=== PATIENT | female | born 1990 ===

== ENCOUNTER 2017-01-15 13:42 | Emergency (ER) | payer OTHER ==
[2017-01-15 13:51] VITALS: BP 117/69; PULSE 78; RESP 19; TEMP 97; O2SAT 100
[2017-01-15] MEDS ORDERED: Sodium Chloride 0.9% 1,000 ML IV STA (15:13)
--- NOTE | 2017-01-15 15:20 | CT ---
PROCEDURE: CT HEAD WITHOUT CONTRAST. HISTORY: headaches COMPARISON: None available. TECHNIQUE: Axial computed tomography images were obtained through the head/brain without intravenous contrast. Radiation dose: Total exam DLP = 801 mGy-cm. This CT exam was performed using one or more of the following dose reduction techniques: Automated exposure control, adjustment of the mA and/or kV according to patient size, and/or use of iterative reconstruction technique. FINDINGS: HEMORRHAGE: No intracranial hemorrhage. BRAIN: No mass effect or edema. No atrophy or chronic microvascular ischemic changes. VENTRICLES: Unremarkable. No hydrocephalus. CALVARIUM: Unremarkable. PARANASAL SINUSES: Unremarkable as visualized. No significant inflammatory changes. MASTOID AIR CELLS: Unremarkable as visualized. No inflammatory changes. OTHER FINDINGS: None. IMPRESSION: Normal CT of the Head.
[2017-01-15 16:28] LABS: HEMATOCRIT 39.6 % (34.0-47.0); MEAN CELL VOLUME 88.1 fl (81.0-99.0); MEAN CORPUSCULAR HEMOGLOBIN 30.2 pg (27.0-31.0); MEAN CORPUSCULAR HGB CONC 34.3 g/dL (33.0-37.0); RED CELL DISTRIBUTION WIDTH 13.2 % (11.5-14.5); WHITE BLOOD COUNT 7.8 K/uL (4.8-10.8)
[2017-01-15 16:30] LABS: ALB/GLOB RATIO 1.3 (1.0-2.1); ALKALINE PHOSPHATASE 97 U/L (38-126); ALT/SGPT 15 U/L (9-52); AST/SGOT 28 U/L (14-36); BILIRUBIN,TOTAL 0.4 mg/dl (0.2-1.3); BLOOD UREA NITROGEN 10 mg/dl (7-17); CALCIUM 9.4 mg/dL (8.4-10.2); CARBON DIOXIDE 25 mmol/L (22-30); CHLORIDE 108 mmol/L (98-107); GFR AFRICAN-AMERICAN > 60; GLUCOSE,RANDOM 87 mg/dL (65-105); SODIUM 146 mmol/l (132-148); TOTAL PROTEIN 7.3 G/DL (6.3-8.2)
--- NOTE | 2017-01-15 19:31 | ED PDOC ---
HPI: Headache Time Seen by Provider: 01/15/17 14:01 Chief Complaint (Nursing): Headache Chief Complaint (Provider): Right sided headache History Per: Patient History/Exam Limitations: no limitations Onset/Duration Of Symptoms: Days Current Symptoms Are (Timing): Still Present Quality: Sharp, Pressure Preceeding Symptoms: denies: Visual Disturbances, Known Migraine Symptoms Additional Complaint(s): Pt states she takes excedrin at home for migraines but they normally feel different and are bilateral. Pt states she took excedrin for pain but it did not help. No fever/chills. No change in vision. No nausea. Past Medical History Reviewed: Historical Data, Nursing Documentation, Vital Signs Vital Signs: Last Vital Signs Temp 97.0 F L 01/15/17 13:48 Pulse 78 01/15/17 13:48 Resp 19 01/15/17 13:48 BP 117/69 01/15/17 13:48 Pulse Ox 100 01/15/17 13:48 - Medical History PMH: Asthma, Migraine - Surgical History Surgical History: No Surg Hx - Family History Family History: States: Unknown Family Hx - Living Arrangements Living Arrangements: With Family - Social History Current smoker - smoking cessation education provided: No Alcohol: None Drugs: Denies - Home Medications Home Medications: Ambulatory Orders Medication Instructions Recorded Nitrofurantoin Macrocrystals 100 mg PO BID #10 cap 10/07/15 [Macrobid] - Allergies Allergies/Adverse Reactions: Allergies Allergy/AdvReac Type Severity Reaction Status Date / Time No Known Allergies Allergy Verified 10/06/15 23:00 Review of Systems ROS Statement: Except As Marked, All Systems Reviewed And Found Negative Neurological: Positive for: Headache Physical Exam - Reviewed Nursing Documentation Reviewed: Yes Vital Signs Reviewed: Yes - Physical Exam Appears: Positive for: Well, Non-toxic, No Acute Distress Head Exam: Positive for: ATRAUMATIC, NORMAL INSPECTION, NORMOCEPHALIC Skin: Positive for: Normal Color, Warm, DRY Eye Exam: Positive for: Normal appearance, EOMI, PERRL ENT: Positive for: Normal ENT Inspection Neck: Positive for: Normal, Painless ROM Cardiovascular/Chest: Positive for: Regular Rate, Rhythm Respiratory: Positive for: CNT, Normal Breath Sounds Gastrointestinal/Abdominal: Positive for: Normal Exam, Bowel Sounds, Soft. Negative for: Tenderness Back: Positive for: Normal Inspection Extremity: Positive for: Normal ROM Neurologic/Psych: Positive for: Alert, Oriented - Laboratory Results Result Diagrams: 01/15/17 15:59 01/15/17 15:59 - ECG O2 Sat by Pulse Oximetry: 100 Medical Decision Making Medical Decision Making: Pt reports no improvement with toradol, IV fluids and O2. Pt is breast feeding. Discussed pump and dumping breast milk with imitrex Pt reports feeling better after imitrex. Disposition - Clinical Impression Clinical Impression: Migraine - Patient ED Disposition Is Patient to be Admitted: No Counseled Patient/Family Regarding: Diagnosis, Need For Followup - Disposition Referrals: [facility] [Outside] Disposition: Routine/Home Disposition Time: 19:29 Condition: GOOD Instructions: Migraine Headache (ED) Forms: [facility] ED School/Work Excuse
== END 2017-01-15 20:08 | disposition home or self-care (01) ==
LOC: H.ER 13:42
DX: G43.909 Migraine, unspecified, not intractable, without status migrainosus (principal); J45.909 Unspecified asthma, uncomplicated

== ENCOUNTER 2018-03-04 13:13 | Emergency (ER) | payer SELFPAY ==
[2018-03-04 13:34] VITALS: BMI 28.0
[2018-03-04 13:36] VITALS: BP 111/70; PULSE 72; RESP 18; O2SAT 99
--- NOTE | 2018-03-04 14:12 | ED PDOC ---
HPI: Back Time Seen by Provider: 03/04/18 13:53 Chief Complaint (Nursing): Back Pain Chief Complaint (Provider): Mid back pain x 2 weeks History Per: Patient History/Exam Limitations: no limitations Onset/Duration Of Symptoms: Days Additional Complaint(s): Pt denies trauma. Pt states she has been taking motrin but only helps for a few minutes. No numbness/tingling. No recent weight loss. No N/V/D. No urinary symptoms. Past Medical History Reviewed: Historical Data, Nursing Documentation, Vital Signs Vital Signs: Last Vital Signs Temp Pulse 72 03/04/18 13:34 Resp 18 03/04/18 13:34 BP 111/70 03/04/18 13:34 Pulse Ox 99 03/04/18 13:34 - Medical History PMH: Asthma, Migraine - Surgical History Surgical History: No Surg Hx - Family History Family History: States: Unknown Family Hx - Living Arrangements Living Arrangements: With Family - Social History Current smoker - smoking cessation education provided: No - Home Medications Home Medications: Ambulatory Orders Medication Instructions Recorded Nitrofurantoin Macrocrystals 100 mg PO BID #10 cap 10/07/15 [Macrobid] Cyclobenzaprine [Cyclobenzaprine 10 mg PO Q8H #20 tab 03/04/18 HCl] - Allergies Allergies/Adverse Reactions: Allergies Allergy/AdvReac Type Severity Reaction Status Date / Time No Known Allergies Allergy Verified 10/06/15 23:00 Review of Systems ROS Statement: Except As Marked, All Systems Reviewed And Found Negative Constitutional: Negative for: Fever, Chills Genitourinary Female: Negative for: Dysuria, Vaginal Discharge, Vaginal Bleeding , Pelvic Pain Musculoskeletal: Positive for: Back Pain Neurological: Negative for: Weakness Physical Exam - Reviewed Nursing Documentation Reviewed: Yes Vital Signs Reviewed: Yes - Physical Exam Appears: Positive for: Well, Non-toxic, No Acute Distress Head Exam: Positive for: ATRAUMATIC, NORMAL INSPECTION, NORMOCEPHALIC Skin: Positive for: Normal Color, Warm, DRY Eye Exam: Positive for: Normal appearance ENT: Positive for: Normal ENT Inspection Neck: Positive for: Normal, Painless ROM Cardiovascular/Chest: Positive for: Regular Rate, Rhythm Respiratory: Positive for: Normal Breath Sounds. Negative for: Accessory Muscle Use, Respiratory Distress Gastrointestinal/Abdominal: Positive for: Normal Exam. Negative for: Tenderness Back: Positive for: Normal Inspection, Muscle Spasm ((+) perispinal tenderness with muscle spasm ) Extremity: Positive for: Normal ROM Neurologic/Psych: Positive for: Alert, Oriented - ECG O2 Sat by Pulse Oximetry: 99 Medical Decision Making Medical Decision Making: Komal in ER . Peg (-) MP 02/10 Disposition - Clinical Impression Clinical Impression: Muscle pain - Patient ED Disposition Is Patient to be Admitted: No Counseled Patient/Family Regarding: Diagnosis, Need For Followup, Rx Given - Disposition Referrals: [facility] [Outside] Disposition: Routine/Home Disposition Time: 14:11 Condition: STABLE Prescriptions: Cyclobenzaprine [Cyclobenzaprine HCl] 10 mg PO Q8H #20 tab Instructions: Muscle and Bone Pain (DC) Forms: [facility] (Swiss)
[2018-03-04 14:31] VITALS: TEMP 98
== END 2018-03-04 14:34 | disposition home or self-care (01) ==
LOC: H.ER 13:13
DX: M54.9 Dorsalgia, unspecified (principal)

== ENCOUNTER 2018-05-21 16:48 | Emergency (ER) | payer OTHER ==
[2018-05-21 16:48] VITALS: BMI 28.0
[2018-05-21] MEDS ORDERED: Sodium Chloride 0.9% 1,000 ML IV STA (17:52)
--- NOTE | 2018-05-21 17:57 | ED PDOC ---
HPI: Female Pain Time Seen by Provider: 05/21/18 17:25 Chief Complaint (Nursing): Headache Chief Complaint (Provider): Pelvic pain History Per: Patient History/Exam Limitations: no limitations Onset/Duration Of Symptoms: Days Additional Complaint(s): Pt. with pelvic cramps off and on for 1 week right. No vaginal bleeding. No diarrhea. Vik burning urination. Also has right side headache, mild. Goes away with tylenol. Feels same as her migraines. Not worst in her life. No vision changes. No numbness, tingles, weakness, dizziness. 14 wks preg. Past Medical History Reviewed: Nursing Documentation, Vital Signs Vital Signs: Last Vital Signs Temp 98.5 F 05/21/18 17:18 Pulse 70 05/21/18 17:18 Resp 18 05/21/18 17:18 BP 106/66 05/21/18 17:18 Pulse Ox 98 05/21/18 17:18 - Medical History PMH: Asthma, Migraine - Surgical History Surgical History: No Surg Hx - Family History Family History: States: Unknown Family Hx - Home Medications Home Medications: Ambulatory Orders Medication Instructions Recorded Nitrofurantoin Macrocrystals 100 mg PO BID #10 cap 10/07/15 [Macrobid] Cyclobenzaprine [Cyclobenzaprine 10 mg PO Q8H #20 tab 03/04/18 HCl] - Allergies Allergies/Adverse Reactions: Allergies Allergy/AdvReac Type Severity Reaction Status Date / Time No Known Allergies Allergy Verified 10/06/15 23:00 Review of Systems ROS Statement: Except As Marked, All Systems Reviewed And Found Negative Gastrointestinal: Positive for: Nausea, Vomiting Genitourinary Female: Positive for: Pelvic Pain Neurological: Positive for: Headache Physical Exam - Reviewed Nursing Documentation Reviewed: Yes Vital Signs Reviewed: Yes - Physical Exam Appears: Positive for: Well, Non-toxic, No Acute Distress Head Exam: Positive for: ATRAUMATIC, NORMAL INSPECTION, NORMOCEPHALIC Skin: Positive for: Normal Color, Warm, DRY Eye Exam: Positive for: EOMI, Normal appearance, PERRL ENT: Positive for: Normal ENT Inspection Neck: Positive for: Normal, Painless ROM Cardiovascular/Chest: Positive for: Regular Rate, Rhythm Respiratory: Positive for: CNT, Normal Breath Sounds Gastrointestinal/Abdominal: Positive for: Normal Exam, Soft. Negative for: Tenderness Back: Positive for: Normal Inspection. Negative for: L CVA Tenderness, R CVA Tenderness Extremity: Positive for: Normal ROM. Negative for: Tenderness Neurologic/Psych: Positive for: Alert, review nurse II-XII, Oriented. Negative for: Motor/Sensory Deficits, Aphasia - Laboratory Results Result Diagrams: 05/21/18 18:15 Urine dip results: Positive for: Nitrate - ECG O2 Sat by Pulse Oximetry: 98 - Progress ED Course And Treament: 1856: Dr. Sanchez to fu on labs and imaging. Type pending/[facility] pending. Disposition - Clinical Impression Clinical Impression: Migraine, Threatened - Patient ED Disposition Is Patient to be Admitted: No - Disposition Disposition: Transfer of Care Disposition Time: 18:57 Condition: FAIR Patient Signed Over To: Desean Sanchez
[2018-05-21 18:42] LABS: BASO % 0.4 % (0.0-2.0); EOS # 0.1 K/uL (0.0-0.7); EOS % 1.2 % (0.0-4.0); HEMOGLOBIN 11.3 g/dL (12.0-16.0); LYMPH # 1.7 K/uL (1.0-4.3); LYMPH % 19.6 % (20.0-40.0); MEAN CELL VOLUME 88.5 fl (81.0-99.0); MEAN CORPUSCULAR HEMOGLOBIN 30.7 pg (27.0-31.0); MEAN CORPUSCULAR HGB CONC 34.7 g/dL (33.0-37.0); MEAN PLATELET VOLUME 7.3 fl (7.2-11.7); MONO # 0.5 K/uL (0.0-0.8); MONO % 5.6 % (0.0-10.0); NEUT # 6.3 K/uL (1.8-7.0); NEUT % 73.2 % (50.0-75.0); RBC 3.69 Mil/uL (3.80-5.20); RED CELL DISTRIBUTION WIDTH 13.2 % (11.5-14.5); WHITE BLOOD COUNT 8.6 K/uL (4.8-10.8)
[2018-05-21 18:53] LABS: SQUAMOUS EPITHIAL 1 /hpf (0-5); URINE BACTERIA RARE (<OCC); URINE BILIRUBIN NEGATIVE (NEGATIVE); URINE BLOOD NEGATIVE (NEGATIVE); URINE CLARITY SLIGHTY-CLOUDY (Clear); URINE COLOR YELLOW (YELLOW); URINE GLUCOSE (UA) NEG (Normal); URINE LEUKOCYTE ESTERASE NEG Leu/uL (Negative); URINE PROTEIN NEGATIVE (NEGATIVE); URINE UROBILINOGEN 0.2-1.0 mg/dL (0.2-1.0)
[2018-05-21 18:54] LABS: BLOOD UREA NITROGEN 9 mg/dl (7-17); CALCIUM 8.8 mg/dL (8.4-10.2); GFR AFRICAN-AMERICAN > 60; GFR NON-AFRICAN AMERICAN > 60
--- NOTE | 2018-05-21 20:36 | ED PDOC ---
- Laboratory Results Result Diagrams: 05/21/18 18:15 05/21/18 18:15 - ECG O2 Sat by Pulse Oximetry: 98 Medical Decision Making Medical Decision Making: Time: 19:00 --Patient care endorsed from Dr. Hansen to provider pending US, labs and reevaluation. Time: 19:59 --Labs reviewed show no clinically significant abnormality with exception to Urinalysis which suggests UTI. Time: 20:07 US - , Transvag FINDINGS: Gestation: Single viable intrauterine . Estimated gestational age by ultrasound is 19 weeks 2 days. Fetus is in transverse position. motion noted. Cardiac activity is seen with a rate of 147 beats per minute. Estimated weight is 90 g. Placenta/amniotic fluid: No placenta previa. Placenta is posterior and fundal. Uterus/cervix: Cervix is 5.0 cm in length and closed. No myometrial mass. Ovaries: Right ovary is not seen. Left ovary is not seen. Free fluid: No free fluid. IMPRESSION: Single viable intrauterine . No acute findings Time: 20:54 --Upon reevaluation patient reports that headache has resolved. Patient is stable for discharge at this time. Diagnosis is UTI and headache in Upon provider reevaluation patient is feeling better, is medically stable, and requires no further treatment in the ED at this time. Patient will be discharged home with Rx for Macrobid. Counseling was provided and all questions were answered regarding diagnosis and need for follow up with PMD. There is agreement to discharge plan. Return if symptoms persist or worsen. Scribe Attestation: Documented by Fly Viveros, acting as a scribe for Desean Sanchez MD. Provider Scribe Attestation: All medical record entries made by the Scribe were at my direction and personally dictated by me. I have reviewed the chart and agree that the record accurately reflects my personal performance of the history, physical exam, medical decision making, and the department course for this patient. I have also personally directed, reviewed, and agree with the discharge instructions and disposition. Disposition - Clinical Impression Clinical Impression: UTI (urinary tract infection), Headache in - POA Present On Arrival: None - Disposition Disposition: Routine/Home Disposition Time: 20:54 Condition: IMPROVED Additional Instructions: CHELSEA DOW, thank you for letting us take care of you today. Your provider was Desean Sanchez MD and you were treated for 14 WKS PREG HEADACHE, ABD PAIN. The emergency medical care you received today was directed at your acute symptoms. If you were prescribed any medication, please fill it and take as directed. It may take several days for your symptoms to resolve. Return to the Emergency Department if your symptoms worsen, do not improve, or if you have any other problems. Please contact your doctor or call one of the physicians/clinics you have been referred to that are listed on the Patient Visit Information form that is included in your discharge packet. Bring any paperwork you were given at discharge with you along with any medications you are taking to your follow up visit. Our treatment cannot replace ongoing medical care by a primary care provider outside of the emergency department. Thank you for allowing the [facility] team to be part of your care today. If you had an X-Ray or CT scan: A Radiologist will review the ED reading if any change in treatment is needed we will contact you. If you had a blood, urine, or wound culture: It will take several days for the results, if any change in treatment is needed we will contact you. If you had an STI test: It will take 48 hours for the results. Please call after 1 week if you have not heard back. Prescriptions: Nitrofurantoin Macrocrystals [Macrobid] 100 mg PO BID #14 cap Instructions: Urinary Tract Infection, Adult (DC) Forms: [employer] (Libyan)
[2018-05-21 21:06] VITALS: BP 127/74; PULSE 77; RESP 16; TEMP 98.3
--- NOTE | 2018-05-22 08:54 | US ---
Date of service: 05/21/2018 PROCEDURE: OB Pelvic Ultrasound HISTORY: preg and pain LMP: 02/10/2018 COMPARISON: No relevant prior imaging. FINDINGS: UTERUS: Placenta: Posterior, fundal. Presentation: Transverse. BPD: 2.7 cm compatible with estimated gestational age of 14 weeks, 5 days. HC: 9.7 cm compatible with estimated gestational age of 14 weeks, 3 days. AC: 7.5 cm compatible with estimated gestational age of 14 weeks, 0 days. FL: 1.4 cm compatible with estimated gestational age of 14 weeks, 1 day. Heart rate: 150 bpm. age (Ultrasound estimated): 14 weeks, 2 days Payal-gestational hemorrhage: None. Date of delivery (Ultrasound estimated) : 11/17/2018 CERVIX: Measures 5.0 cm. Long and closed. No cervical abnormality seen. RIGHT OVARY: Not visualized LEFT OVARY: Not visualized FREE FLUID: None. OTHER FINDINGS: None. IMPRESSION: Single live intrauterine gestation with average ultrasound age of 14 weeks, 2 days. heart rate 150 beats per minute. Cervix long and closed.
[2018-05-22 19:45] VITALS: O2SAT 98
== END 2018-05-21 21:06 | disposition home or self-care (01) ==
LOC: H.ER 16:48
DX: R51 Headache (principal)
CPT/HCPCS: 76817; 80048; 81003; 81025; 82948; 84702; 85025; 86850; 86900; 99285; J2765; J7030

== ENCOUNTER 2018-10-10 19:59 | Emergency (ER) | payer SELFPAY ==
[2018-10-10 20:57] VITALS: BMI 33.2
[2018-10-10 21:48] LABS: SQUAMOUS EPITHIAL 2 /hpf (0-5); URINE AMORPHOUS SEDIMENT RARE /ul (<OCC); URINE BACTERIA RARE (<OCC); URINE BILIRUBIN NEGATIVE (NEGATIVE); URINE BLOOD NEGATIVE (NEGATIVE); URINE CLARITY CLOUDY (Clear); URINE COLOR YELLOW (YELLOW); URINE GLUCOSE (UA) NEG (NEGATIVE); URINE LEUKOCYTE ESTERASE NEG Leu/uL (Negative); URINE PROTEIN NEGATIVE (NEGATIVE); URINE UROBILINOGEN 0.2-1.0 mg/dL (0.2-1.0)
[2018-10-11 02:48] VITALS: BP 111/52; PULSE 71
== END 2018-10-10 21:00 | disposition home or self-care (01) ==
LOC: H.EROB2 19:59
DX: O26.93 Pregnancy related conditions, unspecified, third trimester (principal); R10.2 Pelvic and perineal pain; Z3A.34 34 weeks gestation of pregnancy; O47.03 False labor before 37 completed weeks of gestation, third trimester

== ENCOUNTER 2018-11-12 06:13 | Inpatient (IN) | payer MEDICAID ==
[2018-11-12 06:37] VITALS: BMI 32.4
[2018-11-12] MEDS ORDERED: ceFAZolin 2 GM in Sodium Chloride 0.9% 100 ML IVPB ONE (06:37)
[2018-11-12] MEDS ORDERED: Lactated Ringer's 1,000 ML IV ONE (06:37)
--- NOTE | 2018-11-12 06:37 | OBHP ---
Datetime: 10/10/2018 20:45 IP Adm Impression: , intrauterine ; No Active Labor; Intact Membranes IP Admit Plan: Discharge home Admit Comment, IP Provider: 28yo IUP at 34w [facility] UC c/o occ pressure since 2pm on and off s alberto 2pm She didn't want to come in bu her made her to make sure. No SROM. No VB. +FM [place] last time yesterday POBGYNH: C/S x 3 ; no STD PMH: asthma PSH: umbilical hernia/C/S x 3 NKA PSOH: dneis smoking ETOH drugs A: IUp at 34w not in labor C/S x 3 PLAN: [facility] about IVF hydration...check UA...she wanted to go katharine because she felt fin e...will chekc UA and labot intructoins...cephalexin 500mg PO TID x 7d (script given) Abdomen - PN: Normal Lungs - PN: Normal Heart - PN: Normal HEENT - PN: Normal General - PN: Normal FHR - Baseline A Provider: 130 Membranes, Provider: Intact Contraction Comments Provider: one Comments, ACOG Physical Exam: IN NAD ROS: general she feels fine GI No N/V/D : no F/U/D CV: no CP no palipations RESP: no SOB; no cough (Annotations: Data stored by CPN on behalf of user) Pool Provider: Negative IP Hx Assessment: The History has been Reviewed and is Current EGA AdmitDate IP: 34.4 Vital Signs Provider: Reviewed IP Chief Complaint: Other NICHD Variability Prov Fetus A: Moderate 6-25bpm NICHD Accel Fetus A IP Provider: 15X15 FHR Category Provider Fetus A: Category I NICHD Decel Fetus A IP Provider: None Dilatation, Provider: 0 Effacement, Provider: 0 Genitourinary Exam: Normal
[2018-11-12] MEDS ORDERED: Oxytocin 30 UNIT 30 UNITS/500 ML BAG IV ONE (06:43)
[2018-11-12] MEDS ORDERED: Lactated Ringer's 1,000 ML IV SCH ×2 (06:45→14:13)
[2018-11-12] MEDS ORDERED: OXYTOCIN/0.9 % NS 20 UNIT/1,000 ML BAG IV SCH (06:45)
[2018-11-12] MEDS: Lactated Ringer's 1,000 ML IV ONE ×2 (06:58→09:10)
[2018-11-12 07:45] LABS: BASO % 0.2 % (0.0-2.0); EOS # 0.1 K/uL (0.0-0.7); EOS % 1.2 % (0.0-4.0); HEMOGLOBIN 10.8 g/dL (12.0-16.0); LYMPH # 1.8 K/uL (1.0-4.3); LYMPH % 18.3 % (20.0-40.0); MEAN CELL VOLUME 85.7 fl (81.0-99.0); MEAN CORPUSCULAR HEMOGLOBIN 30.3 pg (27.0-31.0); MEAN CORPUSCULAR HGB CONC 35.4 g/dL (33.0-37.0); MEAN PLATELET VOLUME 7.8 fl (7.2-11.7); MONO # 0.6 K/uL (0.0-0.8); MONO % 6.2 % (0.0-10.0); NEUT # 7.3 K/uL (1.8-7.0); NEUT % 74.1 % (50.0-75.0); RBC 3.57 Mil/uL (3.80-5.20); RED CELL DISTRIBUTION WIDTH 14.4 % (11.5-14.5); WHITE BLOOD COUNT 9.9 K/uL (4.8-10.8)
--- NOTE | 2018-11-12 08:51 | OBADHP ---
Datetime: 11/12/2018 07:19 Admit Comment, IP Provider: 28 y/o, , with IUP 39.2 wks based on GILMA of 11/17/18 presents for r epeat and BTL. Denies any complaints. Denies loss of fluid per vagina, vaginal bleeding or decreased movement. Reports good FM. Denies F/C/N/V/D, CP or SOB. care: Jaziel Bojorquez, last appointment was a week ago GBS neg, HIV Neg, RPR Neg, PPD neg, GC/C neg, Rubella Immune, HbsAg Neg OBHx: 3 x C-sections for failure to progress. No history of STI's. No history of GDM or HTN. PMHx: Asthma- uses a nebulizer and an albuterol inhaler- last exacerbation was 4 months ago, no pr evious intubations PSHx: x3 (all sections were performed because of failure to progress as per patient); ap pendectomy 20 years ago Allergies: NKDA Med: PNVs (stopped took them for only 6 months); took tylenol last night at 6pm (650mg) for hip pa in F/H: Father from Esophageal cancer; Mother suffers from migraines SOcial Hx: Denies ETOH/smoking/Drugs PE: Gen: Resting comfortably in hospital bed. Chest: RRR, S1S2 present Lungs: CTAB ABdomen: Gravid, NT, BS+ Ext: No pedal edema A/P: 28 y/o, , with IUP at 39+2 wks based on GILMA of 11/17/18 presents for scheduled an d BTL. Continue EFM and toco monitoring NPO NST reactive- category 1 tracing GBS-, HIV Neg, RPR Neg, GC/C neg, Rubella Immune, HbsAg Neg, Admit to unit, protocol LR 999 and 125 ml/hr Anesthesia consult CBC, T_S, type and cross match given multiple sections in the past. Case discussed Dr. Rosi Madrigal, PGY1 Pelvic Type - PN: Adequate Extremities - PN: Normal Abdomen - PN: Normal Back - PN: Normal Breast - PN: Not Done Lungs - PN: Normal Heart - PN: Normal Thyroid - PN: Normal Neurologic - PN: Not Done HEENT - PN: Normal General - PN: Normal FHR - Baseline A Provider: 120 Vital Signs Provider: Reviewed; Within Normal Limits IP Chief Complaint: Scheduled Section NICHD Variability Prov Fetus A: Moderate 6-25bpm NICHD Accel Fetus A IP Provider: 15X15 FHR Category Provider Fetus A: Category I NICHD Decel Fetus A IP Provider: None Genitourinary Exam: Normal DTRs - PN: Not Done EGA AdmitDate IP: 39.2 IP Adm Impression: Term, intrauterine IP Admit Plan: Initiate Section protocol Datetime: 10/10/2018 20:45 Membranes, Provider: Intact Contraction Comments Provider: one Comments, ACOG Physical Exam: IN NAD ROS: general she feels fine GI No N/V/D : no F/U/D CV: no CP no palipations RESP: no SOB; no cough (Annotations: Data stored by CPN on behalf of user) Pool Provider: Negative IP Hx Assessment: The History has been Reviewed and is Current Dilatation, Provider: 0 Effacement, Provider: 0
[2018-11-12] MEDS ORDERED: Morphine 1 mg/ml preservative-free Inj(Duramorph) ONE (09:23)
[2018-11-12] MEDS ORDERED: Phenylephrine 10 mg/ml Inj ONE (09:50)
[2018-11-12] MEDS ORDERED: Oxycodone/Acetaminophen 5/325 mg Tab PO PRN ×3 (10:59→14:13)
[2018-11-12] MEDS ORDERED: DiphenhydrAMINE 50 mg/ml Inj ONE (11:10)
--- NOTE | 2018-11-12 11:12 | OBHP ---
Datetime: 11/12/2018 07:19 IP Admit Plan: Initiate Section protocol Pelvic Type - PN: Adequate Extremities - PN: Normal Abdomen - PN: Normal Back - PN: Normal Breast - PN: Not Done Lungs - PN: Normal Heart - PN: Normal Thyroid - PN: Normal Neurologic - PN: Not Done HEENT - PN: Normal General - PN: Normal FHR - Baseline A Provider: 120 EGA AdmitDate IP: 39.2 Vital Signs Provider: Reviewed; Within Normal Limits IP Chief Complaint: Scheduled Section NICHD Variability Prov Fetus A: Moderate 6-25bpm NICHD Accel Fetus A IP Provider: 15X15 FHR Category Provider Fetus A: Category I NICHD Decel Fetus A IP Provider: None Genitourinary Exam: Normal DTRs - PN: Not Done Datetime: 11/12/2018 07:06 IP Adm Impression: Term, intrauterine ; No Active Labor; Intact Membranes Admit Comment, IP Provider: 28 y/o, , with IUP 39.2 wks based on GILMA of 11/17/18 presents for r epeat and BTL. Denies any complaints. Denies loss of fluid per vagina, vaginal bleeding or decreased movement. Reports good FM. Denies F/C/N/V/D, CP or SOB. care: Jaziel Bojorquez, last appointment was a week ago GBS neg, HIV Neg, RPR Neg, PPD neg, GC/C neg, Rubella Immune, HbsAg Neg OBHx: 3 x C-sections for failure to progress. No history of STI's. No history of GDM or HTN. PMHx: Asthma- uses a nebulizer and an albuterol inhaler- last exacerbation was 4 months ago, no pr evious intubations PSHx: x3 (all sections were performed because of failure to progress as per patient); ap pendectomy 20 years ago Allergies: NKDA Med: PNVs (stopped took them for only 6 months); took tylenol last night at 6pm (650mg) for hip pa in F/H: Father from Esophageal cancer; Mother suffers from migraines SOcial Hx: Denies ETOH/smoking/Drugs PE: Gen: Resting comfortably in hospital bed. Chest: RRR, S1S2 present Lungs: CTAB ABdomen: Gravid, NT, BS+ Ext: No pedal edema A/P: 28 y/o, , with IUP at 39+2 wks based on GILMA of 11/17/18 presents for scheduled an d BTL. Continue EFM and toco monitoring NPO NST reactive GBS-, HIV Neg, RPR Neg, GC/C neg, Rubella Immune, HbsAg Neg, Admit to unit, protocol LR 999 and 125 ml/hr Anesthesia consult CBC, T_S, type and cross match given multiple sections in the past. Case discussed Dr. Rosi Madrigal, PGY1 OB Hospitalist note: Pt seen and examined at 9am - In NAD Abd two incisions (discuissed with pt...will go with upper abd incision) A; 39w Previous C/S x 3 multiparity - desries BTL PLAN: conditoin, procedurem risks/complicatoins discussed with pt. her questoins answered. Her h usband was present. They understood above. Informed consent obtained CRISTINA
[2018-11-12] MEDS ORDERED: DiphenhydrAMINE 50 mg/ml Inj IVP PRN ×2 (11:50→14:13)
[2018-11-12] MEDS ORDERED: Simethicone 80 mg Chewtab PO SCH (16:00)
[2018-11-12] MEDS: OXYTOCIN/0.9 % NS 20 UNIT/1,000 ML BAG IV SCH (17:20)
--- NOTE | 2018-11-12 19:01 | OBDS ---
DELIVERY PERSONNEL Delivery Doctor: Kacy Morales DO Scrub Nurse: Cindy Ferreira Supervisor Phosphatic Fertilizer: Krystal Rdz RN/ eloina henderson rn Anesthesiologist: diann Resident: nick MATERNAL INFORMATION Delivery Anesthesia: Spinal Medications in Delivery: ancef 2 grams as preop / 30 u pitocin in 500 cc .9ns Estimated Blood Loss (ml): 800 Placenta Cultured: No Maternal Complications: Other Other Maternal Complications: rc/s with btl 39 weeks pervious c/s x3 rc/s [place] Provider Comments: Pre Op Dx: IUP at 39w/Previous C/S x 3/multiparity - desires BTL Post Op Dx: Same Procedure: Repeat C/S and bilateral tubal ligation (Mod [place] tech) Surgeon Dr Morales Asst : Dr Rob Cha Anesth: Dr Lyon Anesth: spinal Operative findings: -live infant female delivered from cephalic presentatoin/ 9,9 -clear AF -placenta delivered intact spontaneously -Ovaries and tubes WNL -All equipment, spongens and needles accounted for -EBL 800cc LABOR SUMMARY EDC: 11/17/2018 00:00 No. Babies in Womb: 1 Attempted: No Labor Anesthesia: None LABOR INFORMATION Oxytocin: N/A Group B Beta Strep: Negative Steroids Given: None MEMBRANES Membranes Rupture Method: Artificial Rupture of Membranes: 11/12/2018 10:10 Length of Rupture (hrs): 0.00 STAGES OF LABOR Stage 3 hrs: 0 Stage 3 min: 1 VAGINAL DELIVERY Episiotomy: None Laceration Extension: N/A Laceration Type: None CSECTION DELIVERY Primary Indication: Repeat Elective btl Secondary Indication: rc/s CSection Urgency: Elective CSection Incidence: Repeat Labor: N/A Elective: Elective CSection Incision: Lower Uterine Transverse Uterine Closure: Double-layer closure BABY A INFORMATION Infant Delivery Date/Time: 11/12/2018 10:10 Method of Delivery: Born in Route : Yes : N/A Forceps: N/A Vacuum Extraction: N/A Shoulder Dystocia : No SHOULDER DYSTOCIA BABY A Delivery Date/Time: 11/12/2018 10:10 PRESENTATION/POSITION BABY A Presentation: Cephalic Cephalic Presentation: Vertex Breech Presentation: N/A PLACENTA INFORMATION BABY A Placenta Delivery Time : 11/12/2018 10:11 Placenta Method of Delivery: Manual Removal Placenta Status: Delivered SCORES BABY A Heart Rate 1 min: >100 bpm Resp Effort 1 min: Good Cry Reflex Irritability 1 min: Cough or Sneeze or Pulls Away Muscle Tone 1 min: Active Motion Color 1 min: Body [place], Extremities Blue Resuscitation Effort 1 min: Tactile Stimulation SCORE 1 MIN: 9 Heart Rate 5 min: >100 bpm Resp Effort 5 min: Good Cry Reflex Irritability 5 min: Cough or Sneeze or Pulls Away Muscle Tone 5 min: Active Motion Color 5 min: Body [place], Extremities Blue SCORE 5 MIN: 9 Heart Rate 10 min: >100 bpm Resp Effort 10 min: Good Cry Reflex Irritability 10 min: Cough or Sneeze or Pulls Away Muscle Tone 10 min: Active Motion Color 10 min: Completely [place] SCORE 10 MIN: 10 INFANT INFORMATION BABY A Gestational Age at Delivery: 39.0 Gestational Status: Term Infant Outcome : Liveborn Condition : Stable Sex: Female IDENTIFICATION/MEDS BABY A ID Band Number: [id number] ID Band Location: Left Leg; Left Arm WEIGHT/LENGTH BABY A Birthweight (gms): 3610 Weight (lb): 7 Infant Weight (oz): 15 Infant Length Inches: 20.00 Infant Length cms: 50.8 CORD INFORMATION BABY A No. Cord Vessels: 3 Nuchal Cord : N/A Nuchal Cord Other: no True Knot: no Infant Cord pH Baby Arterial: no Infant Cord pH Baby Venous: no Cord Blood Taken: Yes Banking/Donate Info: no Suction: Mouth; Nose ASSESSMENT BABY A Complications: None Physical Findings at Delivery: Within Normal Limits Respirations: Appears Normal Care By: dr tripathi (ped) kierra solis rn Transferred To: Remains with Mother
[2018-11-12] MEDS: Oxycodone/Acetaminophen 5/325 mg Tab PO PRN (21:46)
[2018-11-12] MEDS: Simethicone 80 mg Chewtab PO SCH (21:46)
[2018-11-13] MEDS: Simethicone 80 mg Chewtab PO SCH ×5 (03:51→22:24)
[2018-11-13] MEDS: OXYTOCIN/0.9 % NS 20 UNIT/1,000 ML BAG IV SCH (05:59)
[2018-11-13] MEDS: Oxycodone/Acetaminophen 5/325 mg Tab PO PRN ×4 (06:01→22:24)
[2018-11-13 07:29] LABS: BASO % 0.2 % (0.0-2.0); EOS # 0.1 K/uL (0.0-0.7); EOS % 0.6 % (0.0-4.0); HEMOGLOBIN 9.7 g/dL (12.0-16.0); LYMPH # 1.8 K/uL (1.0-4.3); LYMPH % 14.3 % (20.0-40.0); MEAN CELL VOLUME 86.2 fl (81.0-99.0); MEAN CORPUSCULAR HGB CONC 34.8 g/dL (33.0-37.0); MEAN PLATELET VOLUME 7.8 fl (7.2-11.7); MONO # 0.8 K/uL (0.0-0.8); MONO % 6.4 % (0.0-10.0); NEUT # 9.7 K/uL (1.8-7.0); NEUT % 78.5 % (50.0-75.0); NRBC % 0.1 % (0.0-0.0); RBC 3.24 Mil/uL (3.80-5.20); RED CELL DISTRIBUTION WIDTH 14.7 % (11.5-14.5); WHITE BLOOD COUNT 12.3 K/uL (4.8-10.8)
[2018-11-13] MEDS: Multivitamin With Minerals Tab PO SCH (08:07)
[2018-11-13] MEDS ORDERED: Multivitamin With Minerals Tab PO SCH (09:00)
[2018-11-13] MEDS ORDERED: Pneumococcal 23-Valent Vaccine IM ONE (10:00)
[2018-11-13] MEDS ORDERED: Bisacodyl 5mg EC Tab PO PRN ×2 (10:59)
[2018-11-14] MEDS: Oxycodone/Acetaminophen 5/325 mg Tab PO PRN ×5 (03:07→22:12)
[2018-11-14] MEDS: Simethicone 80 mg Chewtab PO SCH ×4 (03:07→22:11)
[2018-11-14] MEDS: Multivitamin With Minerals Tab PO SCH (08:12)
--- NOTE | 2018-11-14 10:23 | OBPPN ---
Datetime: 11/14/2018 08:23 PP Pain Prov: Within normal limits PP Nausea Prov: Denies PP Flatus Prov: Yes PP BM Prov: No PP Breasts Prov: Not Done PP Heart Prov: Normal PP Lungs Prov: Normal PP Abdomen/Uterus Prov: Normal PP Lochia Prov: Not Done PP Vulva/Perineum Prov: Not Done PP CVA Tenderness Prov: Normal PP Extremities Prov: Normal PP C/S Incision Prov: Normal PP Progress Prov: Normal PP Impression Prov: Normal progression PP Plan Prov: Continue present management PP Progress Note Prov: POD 2 S: 28 yo f S/P C-sec and BTL on 11/12/18 POD 2. No overnight events. Pain tolerated with Ib uprofen. Ambulating without dizziness/ lightheadedness/palpitations. and bottle feeding . Lochia < menses. + flatus/- BM. Denies fever/chills, diarrhea, nausea/vomiting, chest pain, dyspnea , and dizziness. Tolerating regular diet. O: VS: stable GEN: NAD Cardio: S1S2, no murmurs Lungs: clear breath sounds b/l, no wheezing Abdomen: BS+, appropriate tenderness to palpation. Incision C/D/I. Uterus is firm and at the level of the umbilicus. Appropriate tenderness EXT: No edema, calves non-tender NEURO/PSYCH: AAOx3, no grossly focal deficits, preserved affect and mood. H/H: 10.8/30.6 9.7/27.9 Assessment/Plan: 28 yo f S/P C-sec and BTL on 11/12/18 POD2. Pt remains afebrile, tolerating pain with medication. -SCDs for DVT prophylaxis, encouraged ambulating -Percocet 5/325mg q4 and Motrin 600mg po q6 for pain as per pain scale -Senakot 17.2mg po QHS -Mylicon 80mg Q6H -Encourage and ambulation -Anticipating discharge 11/15. Case discussed with Dr Dima Estes PGY1 Vital Signs Provider PP: Reviewed; Within Normal Limits
[2018-11-15] MEDS: Oxycodone/Acetaminophen 5/325 mg Tab PO PRN (02:53)
[2018-11-15] MEDS: Simethicone 80 mg Chewtab PO SCH ×2 (05:48→10:00)
--- NOTE | 2018-11-15 07:26 | OBPPN ---
Datetime: 11/15/2018 06:46 PP Pain Prov: Within normal limits PP Nausea Prov: Denies PP Flatus Prov: Yes PP BM Prov: No PP Breasts Prov: Not Done PP Heart Prov: Normal PP Lungs Prov: Normal PP Abdomen/Uterus Prov: Normal PP Lochia Prov: Normal PP Vulva/Perineum Prov: Not Done PP CVA Tenderness Prov: Normal PP Extremities Prov: Normal PP C/S Incision Prov: Normal PP Progress Prov: Normal PP Impression Prov: Normal progression PP Plan Prov: Continue present management PP Progress Note Prov: POD 3 S: 28 yo f S/P C-sec and BTL on 11/12/18 POD 2. No overnight events. Pain tolerated with Ib uprofen. Ambulating without dizziness/ lightheadedness/palpitations. and bottle feeding . Lochia < menses. + flatus/- BM. Denies fever/chills, diarrhea, nausea/vomiting, chest pain, dyspnea , and dizziness. Tolerating regular diet. O: VS: stable GEN: NAD Cardio: S1S2, no murmurs Lungs: clear breath sounds b/l, no wheezing Abdomen: BS+, appropriate tenderness to palpation. Incision C/D/I. Uterus is firm and at the level of the umbilicus. Appropriate tenderness EXT: No edema, calves non-tender NEURO/PSYCH: AAOx3, no grossly focal deficits, preserved affect and mood. H/H: 10.8/30.6 ' 9.7/27.9 Assessment/Plan: 28 yo f S/P C-sec and BTL on 11/12/18 POD3. Pt remains afebrile, tolerating pain with medication. -SCDs for DVT prophylaxis, encouraged ambulating -Percocet 5/325mg q4 and Motrin 600mg po q6 for pain as per pain scale -Senakot 17.2mg po QHS -Encourage and ambulation -Discharge today, 11/15. - Pt to follow up with Jaziel Madrigal PGY1 OB Hospitalist Addendum: Pt seen and examined by me. Agree w/ above. POD 3 s/p Repeat c/s, BTL, doing well, breast and exploration manager feeding. Possible discharge home today. (ES) IP PP Procedures: None Vital Signs Provider PP: Reviewed; Within Normal Limits
[2018-11-15] MEDS: Multivitamin With Minerals Tab PO SCH (08:32)
--- NOTE | 2018-11-15 09:03 | OBDCSUM ---
Datetime: 11/15/2018 06:48 Discharged to, Provider: Home Follow up at, Provider: Jaziel Bojorquez Disch Instr Activity: Normal activity Disch Instr Diet: Regular Discharge Instructions, Provider: Routine instructions given Discharge Diagnosis, Provider: Term Delivered Discharge Time: 11/15/2018 10:00 Follow up in weeks, Provider: 2 weeks Disch Referrals: None Contraception discussed, Prov: Yes Disch Activity Restrictions: No exercising; No lifting; No sexual activity; Nothing in vagina - Inte rcourse, tampons, douche Discharge Comment, Provider: Discharge Summary DOA: 11/12/2018 EGA: 39.2 wks Diagnosis: S/P scheduled Repeat C- Section with BTL Summary of : 28y/o , 39.2 wks S/P scheduled Repeat C- Section with BTL on 11/12/18 L_D summary: Pt is s/p RCS with BTL. Pain was well controlled with pain meds. No nausea. Tolerated regular diet well. Passing flatus, voiding well w/o difficulties. Breast feeding without difficulty. Lochia < menses volume. DOL: 11/12/18 @17:32 NB: Female : 9/9 Weight: 3610 gm Lochia < menses, mild pain, controlled with medications Blood type: O +, Antibody Neg CBC pp: 9.7/27.9 Contraception: BTL on 11/12/18 Discharge Date: 11/15/2018 Time 10:00 AM Discharge Instructions: -Encourage -Encourage ambulation -Ibuprofen for mild-moderate pain and percocet for mod-severe pain PRN -Feosol 325 mg tab once daily -Senokot 17.2 mg tab PO HS for constipation -Continue vitamins at home - ED precautions: If excessive bleeding, pain that does not get relief, fever >100.4, palpitations , SOB, CP or other concerning symptom go to the ED. - PT was urged if feeling sad, mood swing, depression, neglect of baby, suicidal thoughts, homicid al thoughts go to ER or call 911 for help - Pt should go to her Primary care doctor if have difficulty with breast feeding - F/U at [facility] in 1 week and 4-6 weeks for checkup. -- Saida Madrigal MD, PGY-1 Discharge Diagnosis Prov Other: BTL for contraception Contraception after Delivery: Tubal Ligation
--- NOTE | 2018-11-15 10:15 | OBPPN ---
Datetime: 11/13/2018 06:31 PP Pain Prov: Within normal limits PP Nausea Prov: Denies PP Flatus Prov: Yes PP BM Prov: No PP Breasts Prov: Normal PP Heart Prov: Normal PP Lungs Prov: Normal PP Abdomen/Uterus Prov: Normal PP Lochia Prov: Normal PP Vulva/Perineum Prov: Not Done PP CVA Tenderness Prov: Normal PP Extremities Prov: Normal PP C/S Incision Prov: Normal PP Progress Prov: Normal PP Impression Prov: Normal progression PP Plan Prov: Continue present management PP Progress Note Prov: POD 1 S: 28 yo f S/P C-sec on 11/12/18 POD1. No overnight events. Pain tolerated with Ibuprofen. Ambulating without dizziness/ lightheadedness/palpatations. and bottle feeding. Lochia < menses. + flatus/- BM. Denies fever/chills, diarrhea, nausea/vomiting, chest pain, dyspnea, and diz ziness. Tolerating regular diet. O: VS: stable GEN: NAD Cardio: S1S2, no murmurs Lungs: clear breath sounds b/l, no wheezing Abdomen: BS+, appropriate tenderness to palpation. Incision not visualized, dressing intact dry an d clean. Uterus is firm and at the level of the umbilicus. Appropriate tenderness EXT: No edema, calves non-tender NEURO/PSYCH: AAOx3, no grossly focal deficits, preserved affect and mood. H/H: 10.8/30.6 pCBC pending Assessment/Plan: 28 yo f S/P C-sec on 11/12/18 POD1. Pt remains afebrile, tolerating pain wi th medication. -Anticipating discharge 11/15. -SCDs for DVT prophylaxis, encouraged ambulating -Percocet 5/325mg q4 and Motrin 600mg po q6 for pain as per pain scale -Senakot 17.2mg po QHS -Mylicon 80mg Q6H -Encourage and ambulation Case discussed with Dr Dima Blair PGY1 IP PP Procedures: None Vital Signs Provider PP: Reviewed; Within Normal Limits
--- NOTE | 2018-11-15 10:38 | OP ---
PROCEDURE DATE: 11/12/2018 PREOPERATIVE DIAGNOSES: 1. Intrauterine at 39 weeks' gestation. 2. Previous section x3. 3. Multiparity, desiring voluntary sterilization/bilateral tubal ligation. POSTOPERATIVE DIAGNOSES: 1. Intrauterine at 39 weeks gestation. 2. Previous section x3. 3. Multiparity, desiring voluntary sterilization/bilateral tubal ligation. PROCEDURES: Repeat low-transverse section via previous surgical scar, bilateral tubal ligation via modified Laisha technique. SURGEON: Jose David Morales DO MALTED MILK MIXER: Ritesh Rivas MD (Dr. Ritesh Rivas is an [employer] physician who is a board certified physician who was available to assist on this case. His presence was vital and necessary. He was present from the time of skin incision to deliver the to the closure of the skin). ANESTHESIOLOGIST: Dr. Lyon ANESTHESIA: Spinal. OPERATIVE FINDINGS: Live female , delivered from the cephalic presentation. scores were 9 and 9 given at one and five minutes respectively. Clear amniotic fluid noted. Placenta was delivered intact spontaneously. Ovaries and tubes appeared to be within normal limits grossly. All equipments, sponges and needles were accounted for. ESTIMATED BLOOD LOSS: 800 mL. DESCRIPTION OF PROCEDURE: The patient was brought to the operating room. Spinal anesthesia was given by Dr. Lyon. She was placed in supine position. A Kurtz catheter was placed in the bladder and noted to be draining clear urine. Compression boots were placed on both lower extremities. She was then draped and prepped in the usual sterile manner. Once adequate anesthesia was obtained, an incision was made through the previous surgical scar. The incision was then taken down to the underlying fascia using electrocautery. The fascia was nicked in the midline and extended bilaterally using curved Barrett scissors. Inferior aspect of the fascia was grasped using two Ene clamps, tented up, and the rectus muscle was both bluntly and sharply dissected using curved Barrett scissors. The same was done with superior aspect of the fascia. There was separation in the rectus muscle in the midline and then more digitally. Peritoneum was identified, tented up, and it was incised using Metzenbaum scissors. Some adhesions were noted especially on the lower aspect. These were lysed with direct visualization of bladder and intestines using electrocautery. The same was done with the superior aspect of the peritoneum. The extension was done until adequate visualization was noted. Bladder blade was then inserted. Bladder flap was created by incising peritoneum on the uterus and extending bilaterally using Metzenbaum scissors. Bladder flap was created and then bladder blade was inserted behind the bladder flap. A transverse incision was made using a scalpel. Upon entering the uterus, the incision was then extended bilaterally using bandage scissors, and then rupture of membranes was performed using forceps with teeth. was then delivered by delivering its head, was bulb suctioned nasopharyngeally. The remainder of the was then delivered as atraumatically as possible. Cord was clamped and cut. Cord bloods were obtained. Placenta was delivered intact spontaneously after the was handed to the analyst business analysis in attendance. Uterus was exteriorized, cleared of debris and clots. Good contracture was noted. A 0 Vicryl suture was used to close the first layer of the uterus in interlocking fashion. Second layer of the uterus was closed using 0 Vicryl suture imbricating the first layer. Good hemostasis was assured. Attention was drawn to the right fallopian tube. Ampullary area was then grasped using a Carrington clamp, and then knuckle of the fallopian tube was then excised. This was done by first doubly ligating using 2-0 chromic sutures. Once excised, hemostasis assured. Same was done with left fallopian tube. Both ends were identified out to the fimbrial ends for possible identification. After hemostasis had been assured at the lower uterine aspect as well as the fallopian stumps, irrigation was performed. The uterus was placed back into the peritoneal cavity. Copious irrigation was performed. The lower uterine aspect was noted to have good hemostasis as well as fallopian stumps. All equipments were removed and accounted for. A 0 Vicryl suture was used to approximate the peritoneum in a running fashion. The rectus muscle was noted to have good hemostasis. A 0 Vicryl suture was used to approximate the fascia in a running fashion. Irrigation was performed. A 2-0 plain suture was used to approximate the subcuticular layer in a running fashion. A 3-0 Vicryl suture was used to approximate the skin. Dermabond, Steri-Strips, and pressure bandage were applied. She tolerated the procedure well and was transferred to the recovery room in stable condition. Jose David Morales DO
[2018-11-15 18:00] VITALS: BP 122/63; PULSE 66; RESP 20; TEMP 98.1; O2SAT 98
== END 2018-11-15 12:50 | disposition home or self-care (01) | DRG 540 ==
LOC: H.L&D 06:13 → H.OB/GYN 12:22 → H.EROB 12:26 → H.OB/GYN 15:32
PROVIDERS: ADMIT Obstetrics & Gynecology; ATTEND Obstetrics & Gynecology
PROC: 10D00Z1 Extraction of Products of Conception, Low, Open Approach (ICD-10-PCS; principal; 2018-11-12)
PROC: 4A1HXCZ Monitoring of Products of Conception, Cardiac Rate, External Approach (ICD-10-PCS; 2018-11-12)
PROC: 0UB70ZZ Excision of Bilateral Fallopian Tubes, Open Approach (ICD-10-PCS; 2018-11-12)
DX: O34.211 Maternal care for low transverse scar from previous cesarean delivery (principal); J45.909 Unspecified asthma, uncomplicated; Z37.0 Single live birth; N85.8 Other specified noninflammatory disorders of uterus; Z30.2 Encounter for sterilization; Z3A.39 39 weeks gestation of pregnancy; O99.52 Diseases of the respiratory system complicating childbirth; Z79.899 Other long term (current) drug therapy; Z79.51 Long term (current) use of inhaled steroids